=== PATIENT | male | born 1935 | race Caucasian/White ===

== ENCOUNTER 2017-04-21 15:21 | Inpatient (IN) | payer OTHER ==
[2017-04-21] MEDS ORDERED: oxyCODONE/ACETAMINOPHEN 5/325 TABLET PO PRN (17:40)
[2017-04-21] MEDS ORDERED: SENNOSIDES/DOCUSATE SODIUM 1 EACH TABLET PO PRN (17:40)
--- NOTE | 2017-04-21 17:41 | History and Physical Report ---
History of Present Illnes - History of Present Illness Reason for Visit: git disturbance History of Present Illness: 81-year-old white male who on April 17 underwent an elective hip arthroplasty. Patient did not appear to have any intraoperative or postoperative complications. Patient states he did have some constipation related to his pain medication. Patient however stated he is been having a bowel movement on a regular basis over the last 24 to 48 hours. Patient was transferred to this institution for further rehab services. 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 Patient also has a history of prostate cancer treated with radiation therapy. Patient denies any urinary difficulties of this time. - Past Medical History Cardiac: Hyperlipidemia Heme/Onc: Cancer (prostate, squamous cell cercinoma of the larynx) ENT: Other (glaucoma) Dermatology: Other (actinic keratosis) - Past Surgical History Past Surgical History: Other (patrtial larynectomy. 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 negative: Ear Pain, Ear Discharge, Nose Pain, Nose Discharge, Nose Congestion, Mouth Pain Respiratory: negative: Cough, Dry, Hemoptysis, SOB with Excertion, Pleuritic Pain, Sputum, Wheezing Cardiovascular: negative: Chest Pain, Light Headedness Gastrointestinal: negative: Nausea, Vomiting, Abdominal Pain, Diarrhea, Constipation, Melena, Hematochezia Genitourinary: negative: Dysuria, Frequency Musculoskeletal: Leg Pain Skin: negative: Rash Neurological: Weakness - Medications/Allergies Allergies/Adverse Reactions: Allergies Allergy/AdvReac Type Severity Reaction Status Date / Time No Known Drug Allergies Allergy Unverified 04/27/17 15:55 Home Medications: Home Medications Ascorbic Acid [Vitamin C] 500 mg PO DAILY 04/21/17 Aspirin EC [Ecotrin] 325 mg PO DAILY 04/21/17 Cholecalciferol [Vitamin D-3] 1,000 unit PO DAILY 04/21/17 Cyanocobalamin [Vitamin B-12] 1,000 mcg PO DAILY 04/21/17 Multivitamin [Daily Multiple Vitamin] 1 each PO DAILY 04/21/17 Sennosides/Docusate Sodium [Docusate Sodium-Senna Tablet] 1 each PO BID PRN 07/04 Current Inpatient Medications: Current Inpatient Medications Ascorbic Acid (Vitamin C) 500 mg PO DAILY [facility] Aspirin (Ecotrin) 325 mg PO DAILY [facility] Cholecalciferol (Vitamin D-3) 1,000 unit PO DAILY [facility] Cyanocobalamin (Vitamin B-12) 1,000 mcg PO DAILY [facility] Enoxaparin Sodium (Lovenox) 30 mg SQ QD ЕЛЕНА Stop: 05/04/17 18:01 Multivitamins (Tab-A-Galo) 1 each PO DAILY [facility] Oxybutynin Chloride (Ditropan) 5 mg PO BID ЕЛЕНА Oxycodone/Acetaminophen (Percocet 5-325 Mg Tablet) each PO Q6 PRN PRN Reason: PAIN Senna/Docusate Sodium (Senna Plus Tablet) 1 each PO BID PRN PRN Reason: Constipation Exam - Exam General: Alert, Oriented to Person, Oriented to Place, Oriented to Time, Cooperative, Mild distress HEENT: Atraumatic, PERRLA, Nose Mucous membr. moist/Henning Neck: Normal Range of Motion. No: Stridor, Rigidity, Lymphadenopathy Carotids: WNL Thyroid: WNL Lungs: Clear to auscultation, Normal air movement, Speaks full Sentences. No: Wheezes, Rales, Rhonchi Cardiovascular: Regular rate, Normal S1, Normal S2. No: Gallops Abdomen: Normal bowel sounds, Soft, No tenderness, No hepatospenomegaly, No masses Integumentary: Normal, Hen[place], Warm, Dry Extremities: No clubbing, No cyanosis Neurological: Normal speech, Strength Equal Bilat, Normal tone. No: Normal gait Psych/Mental Status: Mental status NL, Mood NL, Appropriate Affect, Intact Judgment Assessment/Plan - Assessment/Plan (1) Gait disturbance Status: Acute Assessment: Start PT and OT (2) Laryngeal cancer Status: Chronic Assessment: stable at this time (3) Prostate cancer Status: Chronic Assessment: stable VTE Assessment - RISK FACTOR SCORE VTE RISK FACTOR SCORES: AGE OVER 60 YEARS, ANTICIPATED BED CONFINEMENT OR IMMOBILIZATION > 24 HOURS, ELECTIVE KNEE OR HIP ARTHROPLASTY - RISK VTE HIGH RISK: SCORE OF 3-4 (RISK PROXIMAL DVT 4-8%) PROPHYLAXIS NEEDED
[2017-04-21 17:44] VITALS: BMI 23.9
[2017-04-21] MEDS: ENOXAPARIN SODIUM 30 MG/0.3 ML DISP.SYRIN SQ SCH (18:49)
[2017-04-21] MEDS: OXYBUTYNIN CHLORIDE 5 MG TABLET PO SCH (21:40)
[2017-04-22] MEDS ORDERED: ASCORBIC ACID (VITAMIN C) 500 MG TABLET PO SCH (09:00)
[2017-04-22] MEDS: OXYBUTYNIN CHLORIDE 5 MG TABLET PO SCH ×2 (09:42→20:09)
[2017-04-22] MEDS: CYANOCOBALAMIN (VITAMIN B12) 1,000 MCG TABLET PO SCH (09:42)
[2017-04-22] MEDS: CHOLECALCIFEROL (VIT D3) 1,000 UNIT TABLET PO SCH (09:43)
[2017-04-22] MEDS: TAMSULOSIN HCL 0.4 MG CAP.ER.24H PO SCH (09:43)
[2017-04-22] MEDS: MULTIVITAMIN 1 EACH TABLET PO SCH (09:43)
[2017-04-22] MEDS: ASPIRIN EC 325 MG TABLET.DR PO SCH (09:43)
[2017-04-22] MEDS: ENOXAPARIN SODIUM 30 MG/0.3 ML DISP.SYRIN SQ SCH (17:17)
[2017-04-23] MEDS: oxyCODONE/ACETAMINOPHEN 5/325 TABLET PO PRN (07:09)
[2017-04-23] MEDS: OXYBUTYNIN CHLORIDE 5 MG TABLET PO SCH (08:33)
[2017-04-23] MEDS: ASPIRIN EC 325 MG TABLET.DR PO SCH (08:33)
[2017-04-23] MEDS: CHOLECALCIFEROL (VIT D3) 1,000 UNIT TABLET PO SCH (08:34)
[2017-04-23] MEDS: MULTIVITAMIN 1 EACH TABLET PO SCH (08:34)
[2017-04-23] MEDS: TAMSULOSIN HCL 0.4 MG CAP.ER.24H PO SCH (08:34)
[2017-04-23] MEDS: CYANOCOBALAMIN (VITAMIN B12) 1,000 MCG TABLET PO SCH (08:34)
[2017-04-23] MEDS: ENOXAPARIN SODIUM 30 MG/0.3 ML DISP.SYRIN SQ SCH (17:51)
[2017-04-24] MEDS: TAMSULOSIN HCL 0.4 MG CAP.ER.24H PO SCH (08:42)
[2017-04-24] MEDS: ASPIRIN EC 325 MG TABLET.DR PO SCH (08:42)
[2017-04-24] MEDS: OXYBUTYNIN CHLORIDE 5 MG TABLET PO SCH ×3 (08:42→20:58)
[2017-04-24] MEDS: oxyCODONE/ACETAMINOPHEN 5/325 TABLET PO PRN (08:42)
[2017-04-24] MEDS: CHOLECALCIFEROL (VIT D3) 1,000 UNIT TABLET PO SCH (08:43)
[2017-04-24] MEDS: MULTIVITAMIN 1 EACH TABLET PO SCH (08:43)
[2017-04-24] MEDS: CYANOCOBALAMIN (VITAMIN B12) 1,000 MCG TABLET PO SCH (08:43)
[2017-04-24] MEDS: traMADol HCL 50 MG TABLET PO PRN (13:03)
--- NOTE | 2017-04-24 18:05 | Inpatient Progress Note ---
Subjective - Required Recertification Statement I anticipate X number of days because-include discharge plan: 5 days - Review of Systems Events since last encounter: Patient stated he is been doing well. Patient feels like he is making good improvement with his ability to ambulate. Patient denies any very much pain at this time. Patient is not had any count patient problems. Objective - Exam Vitals and I&O: Vital Signs Temp 97.3 F L 04/24/17 09:00 Pulse 90 04/24/17 09:00 Resp 20 04/24/17 09:00 BP 136/73 04/24/17 09:00 Pulse Ox 99 04/24/17 09:00 Intake & Output 04/23/17 04/24/17 04/24/17 23:59 11:59 23:59 Intake Total 720 240 480 Output Total 300 Balance 420 240 480 Intake: Oral 720 240 480 Output: Urine 300 Other: Voiding Method Urinal Urinal # Voids 6 3 # Bowel Movements 2 General: Alert, Oriented to Person, Oriented to Place, Oriented to Time, Cooperative Lungs: Clear to auscultation, Normal air movement, Speaks full Sentences, Respiratory Distress. No: Wheezes, Rales, Rhonchi Cardiovascular: Regular rate, Normal S1, Normal S2, No murmurs Abdomen: Normal bowel sounds Skin: Normal, Gabbs, Warm, Dry Assessment/Plan - Assessment/Plan (1) Gait disturbance Status: Acute Current Visit: Yes Assessment: Improving with PT and OT (2) Laryngeal cancer Status: Chronic Current Visit: Yes Assessment: stable (3) Prostate cancer Status: Chronic Current Visit: Yes Assessment: stable
[2017-04-24] MEDS: ENOXAPARIN SODIUM 30 MG/0.3 ML DISP.SYRIN SQ SCH (18:26)
[2017-04-25] MEDS: ASPIRIN EC 325 MG TABLET.DR PO SCH (09:12)
[2017-04-25] MEDS: OXYBUTYNIN CHLORIDE 5 MG TABLET PO SCH ×2 (09:12→21:16)
[2017-04-25] MEDS: CHOLECALCIFEROL (VIT D3) 1,000 UNIT TABLET PO SCH (09:13)
[2017-04-25] MEDS: CYANOCOBALAMIN (VITAMIN B12) 1,000 MCG TABLET PO SCH (09:13)
[2017-04-25] MEDS: MULTIVITAMIN 1 EACH TABLET PO SCH (09:13)
[2017-04-25] MEDS: TAMSULOSIN HCL 0.4 MG CAP.ER.24H PO SCH (09:13)
[2017-04-25] MEDS: traMADol HCL 50 MG TABLET PO PRN (09:14)
[2017-04-25] MEDS: ENOXAPARIN SODIUM 30 MG/0.3 ML DISP.SYRIN SQ SCH (18:01)
[2017-04-25] MEDS: ASCORBIC ACID (VITAMIN C) 500 MG TABLET PO SCH (22:05)
[2017-04-26] MEDS ORDERED: 0.9 % SODIUM CHLORIDE 0 ML IV ONE (08:02)
[2017-04-26] MEDS: OXYBUTYNIN CHLORIDE 5 MG TABLET PO SCH ×2 (08:47→22:10)
[2017-04-26] MEDS: CYANOCOBALAMIN (VITAMIN B12) 1,000 MCG TABLET PO SCH (08:47)
[2017-04-26] MEDS: MULTIVITAMIN 1 EACH TABLET PO SCH (08:47)
[2017-04-26] MEDS: ASPIRIN EC 325 MG TABLET.DR PO SCH (08:48)
[2017-04-26] MEDS: oxyCODONE/ACETAMINOPHEN 5/325 TABLET PO PRN (08:48)
[2017-04-26] MEDS: CHOLECALCIFEROL (VIT D3) 1,000 UNIT TABLET PO SCH (08:48)
[2017-04-26] MEDS: TAMSULOSIN HCL 0.4 MG CAP.ER.24H PO SCH (08:48)
[2017-04-26] MEDS: ASCORBIC ACID (VITAMIN C) 500 MG TABLET PO SCH (17:18)
[2017-04-26] MEDS: ENOXAPARIN SODIUM 30 MG/0.3 ML DISP.SYRIN SQ SCH (17:32)
[2017-04-26] MEDS: traMADol HCL 50 MG TABLET PO PRN (22:10)
[2017-04-27] MEDS: CHOLECALCIFEROL (VIT D3) 1,000 UNIT TABLET PO SCH (09:53)
[2017-04-27] MEDS: OXYBUTYNIN CHLORIDE 5 MG TABLET PO SCH ×2 (09:53→21:07)
[2017-04-27] MEDS: MULTIVITAMIN 1 EACH TABLET PO SCH (09:53)
[2017-04-27] MEDS: CYANOCOBALAMIN (VITAMIN B12) 1,000 MCG TABLET PO SCH (09:53)
[2017-04-27] MEDS: TAMSULOSIN HCL 0.4 MG CAP.ER.24H PO SCH (09:53)
[2017-04-27] MEDS: ASPIRIN EC 325 MG TABLET.DR PO SCH (09:53)
[2017-04-27] MEDS: oxyCODONE/ACETAMINOPHEN 5/325 TABLET PO PRN ×2 (12:05→21:07)
[2017-04-27] MEDS: ENOXAPARIN SODIUM 30 MG/0.3 ML DISP.SYRIN SQ SCH (18:48)
[2017-04-28] MEDS: OXYBUTYNIN CHLORIDE 5 MG TABLET PO SCH ×2 (09:42→20:42)
[2017-04-28] MEDS: traMADol HCL 50 MG TABLET PO PRN (09:42)
[2017-04-28] MEDS: CYANOCOBALAMIN (VITAMIN B12) 1,000 MCG TABLET PO SCH (09:43)
[2017-04-28] MEDS: ASPIRIN EC 325 MG TABLET.DR PO SCH (09:43)
[2017-04-28] MEDS: MULTIVITAMIN 1 EACH TABLET PO SCH (09:43)
[2017-04-28] MEDS: TAMSULOSIN HCL 0.4 MG CAP.ER.24H PO SCH (09:46)
[2017-04-28] MEDS: CHOLECALCIFEROL (VIT D3) 1,000 UNIT TABLET PO SCH (09:46)
[2017-04-28] MEDS: ENOXAPARIN SODIUM 30 MG/0.3 ML DISP.SYRIN SQ SCH (17:37)
[2017-04-28] MEDS: oxyCODONE/ACETAMINOPHEN 5/325 TABLET PO PRN (20:42)
[2017-04-29] MEDS: OXYBUTYNIN CHLORIDE 5 MG TABLET PO SCH (09:04)
[2017-04-29] MEDS: TAMSULOSIN HCL 0.4 MG CAP.ER.24H PO SCH (09:05)
[2017-04-29] MEDS: ASPIRIN EC 325 MG TABLET.DR PO SCH (09:05)
[2017-04-29] MEDS: MULTIVITAMIN 1 EACH TABLET PO SCH (09:06)
[2017-04-29] MEDS: CYANOCOBALAMIN (VITAMIN B12) 1,000 MCG TABLET PO SCH (09:07)
[2017-04-29] MEDS: CHOLECALCIFEROL (VIT D3) 1,000 UNIT TABLET PO SCH (12:08)
[2017-04-29 12:19] VITALS: BP 126/73
--- NOTE | 2017-05-06 10:23 | Discharge Summary ---
Discharge Summary - Discharge Sumary History of Present Illness: 81-year-old white male who on April 17 underwent an elective hip arthroplasty. Patient did not appear to have any intraoperative or postoperative complications. Patient states he did have some constipation related to his pain medication. Patient however stated he is been having a bowel movement on a regular basis over the last 24 to 48 hours. Patient was transferred to this institution for further rehab services. 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 Patient also has a history of prostate cancer treated with radiation therapy. Patient denies any urinary difficulties of this time. Condition at Discharge: Stable Home Medications: Ambulatory Orders Medication Instructions Recorded Ascorbic Acid [Vitamin C] 500 mg PO DAILY 04/21/17 Aspirin EC [Ecotrin] 325 mg PO DAILY 04/21/17 Cholecalciferol [Vitamin D-3] 1,000 unit PO DAILY 04/21/17 Cyanocobalamin [Vitamin B-12] 1,000 mcg PO DAILY 04/21/17 Multivitamin [Daily Multiple 1 each PO DAILY 04/21/17 Vitamin] Sennosides/Docusate Sodium 1 each PO BID PRN 04/21/17 [Docusate Sodium-Senna Tablet] Oxybutynin Chloride [Ditropan] 5 mg PO BID #60 tablet 04/29/17 Tamsulosin HCl [Flomax] 0.4 mg PO DAILY #30 cap.er.24h 04/29/17 Consultations this Visit: None Procedures this Visit: None Allergies/Adverse Reactions: Allergies Allergy/AdvReac Type Severity Reaction Status Date / Time No Known Drug Allergies Allergy Unverified 04/27/17 15:55 Discharge Summary: Patient did well during his skills stay. Patient was highly motivated and participate with physical and occupational therapy well. Patient did make improvement with his ability to transfer and to ambulate. Patient surgical wound remained stable and clean without any signs of infection. Patient chronic medical problems remain stable. Patient with discharged in stable condition. - Final Diagnosis (1) Gait disturbance Problems: improved, will continue with PT at home (2) Laryngeal cancer Problems: stable (3) Prostate cancer Problems: stable
== END 2017-04-29 11:25 | disposition home or self-care (01) | DRG 93 ==
LOC: SOUTH 15:21
PROVIDERS: ADMIT Family Medicine; ATTEND Family Medicine
DX: R26.9 Unspecified abnormalities of gait and mobility (principal); C32.9 Malignant neoplasm of larynx, unspecified; C61 Malignant neoplasm of prostate; F17.210 Nicotine dependence, cigarettes, uncomplicated
CPT/HCPCS: J1650; A9270-GY; J7030

== ENCOUNTER 2018-12-24 11:45 | Outpatient (CLI) | payer OTHER ==
--- NOTE | 2018-12-24 12:30 | Diagnostic Imaging Report ---
PATIENT MR#: [id number] PATIENT PATIENT NAME: TIARA LAU DATE OF : 1935 REFERRING PHYSICIAN: Linda Torres EXAM DATE: 12/24/2018 ACCESSION NUMBER: [id number] EXAM DESCRIPTION: CHEST 2VIEW CHEST, TWO VIEWS CLINICAL INDICATION: CXR, SOA, PT STATES HX OF THROAT SURGERY X2 YEARS AGO, QUIT SMOKING X50 YEARS AGO (Hx) / FINDINGS: There is no focal consolidation, significant pleural effusion or pneumothorax. There is hyperexpansio n with prominence of interstitial pattern consistent with COPD. The heart is mildly prominent. Diffuse osseous deminera lization is present throughout the thoracic spine. A mass is not detected. IMPRESSION: No acute pulmonary process Read by: Dr. Chase Raman Transcribed by: Transcribed Date: Electronically signed by: Dr. Chase Raman Date signed: 12/24/2018 12:29:28 PM
== END 2018-12-24 11:55 ==
LOC: RAD 11:45
PROVIDERS: ATTEND Nurse Practitioner Family
DX: R06.02 Shortness of breath (principal)
CPT/HCPCS: 71046